=== PATIENT | male | born 1970 | race Two or more races ===

== ENCOUNTER 2024-08-21 09:38 | Outpatient (AMB) | payer MEDICAID, SELFPAY ==
[2024-08-21 09:50] VITALS: BP 147/79; PULSE 76; RESP 18; TEMP 36.6; O2SAT 94; BMI 48.4
--- NOTE | 2024-08-21 09:50 | RHCORTHONT_ITS ---
Vital signs 08/21/24 09:50 Height 1.75 m Height Method Stated Weight 148.863 kg Weight Measurement Method Standing Scale BMI 48.4 BP 147/79 H Blood Pressure Source Automatic Cuff Blood Pressure Location Right Upper Arm Position Sitting Respiration 18 Pulse 76 Pulse Source Monitor Temp 97.9 F Temp Source Temporal Artery Scan Pulse Oximetry (%) 94 L Oxygen Delivery Method Room Air Med/Allergies Allergies & Medications Allergies Fish Containing Products Allergy (Severe, Verified 08/21/24 09:51) Swelling of Lip/Tongue/Throat scallops Allergy (Severe, Verified 08/21/24 09:51) Swelling of Lip/Tongue/Throat shrimp Allergy (Severe, Verified 08/21/24 09:51) Swelling of Lip/Tongue/Throat Penicillins Allergy (Mild, Verified 08/21/24 09:51) Rash ibuprofen [From Motrin] Allergy (Verified 08/21/24 09:51) Medication Reconciliation hydrocortisone-pramoxine 1 %-1 % rectal cream 1 applic [place] TID-QID PRN hemorrhoids #30 grams 12/25/23 [Rx] rosuvastatin 20 mg tablet 20 mg PO QDAY 08/21/24 [History Confirmed 08/21/24] semaglutide 1 mg/dose (4 mg/3 mL) subcutaneous pen injector (Ozempic) 1 mg subcut QWEEK 08/21/24 [History Confirmed 08/21/24] Exam Exam Patient is in no acute distress and is cooperative with the examination today. Breathing is nonlabored. In no respiratory distress. Bilateral extremities were evaluated and demonstrates sensation intact to light touch. Palpable pedal pulses are present. No significant edema is present. Bilateral hips were examined. The patient has no pain with log roll of the hips. Internal rotation to 30 degrees and external rotation to 30 degrees is painless. Negative FADIR. The left knee was examined. The left knee is in [varus] alignment. Range of motion from [0-115] degrees. Knee is stable to varus and valgus as well as AP translation with <5mm. Patient has a [negative] McMurrays. There is [no] pain with patellofemoral compression and [no] crepitus noted. The knee is [tender] to palpation [medially]. The right knee was also examined. The right knee is in [varus] alignment. Range of motion from [0-120] degrees. Knee is stable to varus and valgus as well as AP translation with <5mm. Patient has a [negative] McMurrays. There is [no] pain with patellofemoral compression and [no] crepitus noted. The knee is [tender] to palpation [medially]. X-rays of the right knee demonstrate complete joint space obliteration medially. There are osteophytes present. I looked at the x-rays on her phone. Assessment and Plan Problem List (1) Degenerative arthritis of knee, bilateral: Status: Acute Plan: Patient is a pleasant 54-year-old male with bilateral knee pain and bilateral knee arthritis. We discussed Conservative treatment including injections and anti-inflammatories. We also discussed weight loss in great detail. We discussed his goal weight is probably around 270. We recommend that he see us in 6 months and we will check his weight progress. Office Procedures GNS Level of Care Nursing/Assessment Patient Status: Initial/New Patient Nursing Assessment/Reassesment: Medication Reconciliation, Update PMH in EMR and Vital Signs Coordination of Care: Complex Care and Chronic Disease 1-5, Education Complex Pt/Fam, Results/Orders obtained and Staff clarify orders New Patient Charge New Patient Point Assignment: 1089 New Patient Point Charge: SENIOR DIRECTOR OF STRATEGY Level 3 (4216-0116) MA Intake Visit Data Collection New Patient or Established: New Patient (never been to [facility]) Reason for Visit:: RT KNEE PAIN Seen by Clinical Staff ONLY (RN/MA): No Multimedia Programmer Required: No PCP or OBGYN visit in last 3 months: Yes Hx Now: No Do You Feel Safe at Home: Yes Questionairres Past Medical History Past Medical History Have you ever been diagnosed with any of the following: Neurological Problems Seizures: No Cardiology Problems Hypercholesterolemia: Yes (not currently taking medication) Congestive Heart Failure: No Respiratory Problems Chronic Obstructive Pulmonary Disease (COPD): No Pneumonia: Yes Sleep Apnea: Yes (no machine) Smoking: Yes Smoking Cessation Counseling: Yes Smoking Exposure: Yes Tobacco Use: Yes Stomache/Intestinal Problems Gastrointestinal Bleed: Yes Ulcer: Yes (2003) Obesity: Yes Genital/Urinary Problems Renal Disease: No Musculoskeletal Problems Fractures: Yes (right hand, no surgery) Endocrine Problems Diabetes Mellitus Type 1: No Diabetes Mellitus Type 2: No Blood Problems Anemia: Yes Other Problems Hospitalization: Yes (c.diff, salmonella (2018)) Shingles: Yes (4 years ago) Falls: No Blood Transfusions: Yes (2003) Blood Transfusion Reaction: No Anesthesia Reactions: No (this is patient's first surgery, pt has had iv sedation) MRSA: No Chicken Pox: Yes Clostridium Difficile: Yes Cancer: No Surgical History Hysterectomy: No Subjective Visit Visit for: new patient and knee Immunization / Flu Flu Vaccine in the Last 12 Months: No Flu Vaccine Exclusion Criteria: Refused by Patient History of Present Illness Chief complaint: RT KNEE PAIN Date of injury / onset of symptoms: 26 YEARS Patient is a 54-year-old male with right knee pain has been ongoing for 26 years. He has had a prior arthroscopic meniscectomy in 2019. He got over 12 injections and the injections only lasted 3 days. He is also tried anti- inflammatory medication. He is currently smoking and is obese. He is on Ozempic and is starting to lose weight Personal History Occupation: CAREGIVER BMI Counceling provided: Yes Pain Pain level (0-10): 6 Pain duration: CONSTANT Pain location: inside (medial), outside (lateral), anterior and posterior Pain quality: aching and burning Pain timing: increases with activity and stairs Associated signs & symptoms: numbness and weakness Ambulatory data Ambulatory device: none Walking distance (minutes): 15 Treatments Number of previous injections: 12 Improvement with previous injections: No Improvement with NSAIDS: no Review of Systems Review of Systems: All systems negative unless otherwise noted in HPI.
== END 2024-08-21 10:12 | disposition home or self-care (01) ==
LOC: HODSRG 09:38
PROVIDERS: PCP Family Medicine; Referring Provider Family Medicine; Supervising Provider Orthopaedic Surgery Adult Reconstructive Orthopaedic Surgery; Visit Provider Orthopaedic Surgery Adult Reconstructive Orthopaedic Surgery
DX: M17.0 Bilateral primary osteoarthritis of knee (principal); M25.562 Pain in left knee; M25.561 Pain in right knee; E78.00 Pure hypercholesterolemia, unspecified
CPT/HCPCS: 99203; G0463

== ENCOUNTER → 2025-01-20 | Outpatient (CLI) | payer MEDICAID, SELFPAY ==
--- NOTE | 2025-01-20 09:42 | XR_ITS ---
Examination: Knee, left , 3 views Technique: Knee AP, lateral, oblique 3 views Date and time of exam: January 20, 2025 0946 hours INDICATIONS: Left knee pain beginning 2 months ago. FINDINGS: Moderate osteopenia. Mild tricompartment osteoarthritis. Small knee effusion IMPRESSION: Mild tricompartment osteoarthritis
== END | disposition home or self-care (01) ==
LOC: CDIM 09:28
PROVIDERS: PCP Family Medicine; Referring Provider Family Medicine; Visit Provider Family Medicine
DX: M17.12 Unilateral primary osteoarthritis, left knee (principal)
CPT/HCPCS: 73562

== ENCOUNTER 2025-02-18 09:42 | Outpatient (AMB) | payer MEDICAID, SELFPAY ==
[2025-02-18 10:25] VITALS: BP 131/83; PULSE 72; RESP 19; TEMP 36.5; O2SAT 94; BMI 48.4
--- NOTE | 2025-02-18 10:25 | PD.ORTHCLVIS ---
Vital signs 02/18/25 10:25 Height 1.75 m Height Method Stated Weight 148.552 kg Weight Measurement Method Standing Scale BMI 48.4 BP 131/83 H Blood Pressure Source Automatic Cuff Blood Pressure Location Left Upper Arm Position Sitting Respiration 19 Pulse 72 Pulse Source Monitor Temp 97.7 F Temp Source Temporal Artery Scan Pulse Oximetry (%) 94 L Oxygen Delivery Method Room Air Med/Allergies Allergies & Medications Allergies Fish Containing Products Allergy (Severe, Verified 02/18/25 10:27) Swelling of Lip/Tongue/Throat scallops Allergy (Severe, Verified 02/18/25 10:27) Swelling of Lip/Tongue/Throat shrimp Allergy (Severe, Verified 02/18/25 10:27) Swelling of Lip/Tongue/Throat Penicillins Allergy (Mild, Verified 02/18/25 10:27) Rash ibuprofen (From Motrin) Allergy (Verified 02/18/25 10:27) Medication Reconciliation hydrocortisone-pramoxine 1 %-1 % rectal cream 1 applic [place] TID-QID PRN hemorrhoids #30 grams 12/25/23 [Rx Confirmed 02/18/25] rosuvastatin 20 mg tablet 20 mg PO QDAY 08/21/24 [History Confirmed 02/18/25] semaglutide 1 mg/dose (4 mg/3 mL) subcutaneous pen injector (Ozempic) 1 mg subcut QWEEK 08/21/24 [History Confirmed 02/18/25] Exam Exam Patient is in no acute distress and is cooperative with the examination today. Breathing is nonlabored. In no respiratory distress. Bilateral extremities were evaluated and demonstrates sensation intact to light touch. Palpable pedal pulses are present. No significant edema is present. Bilateral hips were examined. The patient has no pain with log roll of the hips. Internal rotation to 30 degrees and external rotation to 30 degrees is painless. Negative FADIR. The left knee was examined. The left knee is in [varus] alignment. Range of motion from [0-115] degrees. Knee is stable to varus and valgus as well as AP translation with <5mm. Patient has a [negative] McMurrays. There is [no] pain with patellofemoral compression and [no] crepitus noted. The knee is [tender] to palpation [medially]. The right knee was also examined. The right knee is in [varus] alignment. Range of motion from [0-120] degrees. Knee is stable to varus and valgus as well as AP translation with <5mm. Patient has a [negative] McMurrays. There is [no] pain with patellofemoral compression and [no] crepitus noted. The knee is [tender] to palpation [medially]. Bilateral knee x-rays demonstrate mild to moderate arthritis. These are nonweightbearing films Assessment and Plan Problem List (1) Degenerative arthritis of knee, bilateral: Status: Acute Plan: Patient is a pleasant 54-year-old male with bilateral knee pain and bilateral knee arthritis. We discussed Conservative treatment including injections and anti-inflammatories. We also discussed weight loss in great detail. He has lost some weight. He is lost about 12 pounds. I will need x-rays of the other knee as this is what is hurting him more right now. Office Procedures GNS Level of Care Nursing/Assessment Patient Status: Established Patient Nursing Assessment/Reassesment: Medication Reconciliation, Update PMH in EMR and Vital Signs Coordination of Care: Complex Care and Chronic Disease 1-5, Education Complex Pt/Fam, Consent,records obtained, informed consent, Results/Orders obtained and Staff clarify orders Established Patient Charge Established Patient Point Assignment: 95 Established Patient Point Charge: EP Level 3 (80-115) MA Intake Visit Data Collection New Patient or Established: Established Patient (seen at [facility] within 3 years) Reason for Visit:: 6MTH BL PAIN Seen by Clinical Staff ONLY (RN/MA): No PCP or OBGYN visit in last 3 months: Yes Hx Now: No Do You Feel Safe at Home: Yes Authorities Contacted: N/A Questionairres Past Medical History Past Medical History Have you ever been diagnosed with any of the following: Neurological Problems Seizures: No Cardiology Problems Hypercholesterolemia: Yes (not currently taking medication) Congestive Heart Failure: No Respiratory Problems Chronic Obstructive Pulmonary Disease (COPD): No Pneumonia: Yes Sleep Apnea: Yes (no machine) Smoking: Yes Smoking Cessation Counseling: Yes Smoking Exposure: Yes Tobacco Use: Yes Stomache/Intestinal Problems Gastrointestinal Bleed: Yes Ulcer: Yes (2003) Obesity: Yes Genital/Urinary Problems Renal Disease: No Musculoskeletal Problems Fractures: Yes (right hand, no surgery) Endocrine Problems Diabetes Mellitus Type 1: No Diabetes Mellitus Type 2: No Blood Problems Anemia: Yes Other Problems Hospitalization: Yes (c.diff, salmonella (2018)) Shingles: Yes (4 years ago) Falls: No Blood Transfusions: Yes (2003) Blood Transfusion Reaction: No Anesthesia Reactions: No (this is patient's first surgery, pt has had iv sedation) MRSA: No Chicken Pox: Yes Clostridium Difficile: Yes Cancer: No Subjective Visit Visit for: new patient, follow up visit and knee Immunization / Flu Flu Vaccine in the Last 12 Months: No Flu Vaccine Exclusion Criteria: Refused by Patient and No Exclusion Criteria History of Present Illness Chief complaint: RT KNEE PAIN Date of injury / onset of symptoms: 26 YEARS Patient is a 54-year-old male with right knee pain has been ongoing for 26 years. He has had a prior arthroscopic meniscectomy in 2019. He got over 12 injections and the injections only lasted 3 days. He has also tried anti-inflammatory medication. He is currently smoking and is obese. He is on Ozempic and is starting to lose weight He reports the left knee has been acting up recently. He has no x-rays for this knee Personal History Occupation: CAREGIVER BMI Counceling provided: Yes Pain Pain level (0-10): 4 Pain duration: CONSTANT Pain location: inside (medial), outside (lateral), anterior and posterior Pain quality: dull, aching and burning Pain timing: night, increases with activity and stairs Associated signs & symptoms: numbness and weakness Ambulatory data Ambulatory device: none Walking distance (minutes): 15 Treatments Number of previous injections: 12 Improvement with previous injections: No Improvement with PT: No Improvement with NSAIDS: no Review of Systems Review of Systems: All systems negative unless otherwise noted in HPI.
--- NOTE | 2025-02-18 10:27 | XR_ITS ---
Examination: Bilateral knees 2 views Right lateral knee left lateral knee 2 views Bilateral axial knees single view TECHNIQUE: Bilateral AP knees standing single view, bilateral PA knees standing single view flexion Standing right lateral knee left lateral knee 2 views Bilateral axial knees single view total 5 views Date and time: February 18, 2025 1052 hours INDICATIONS: Left knee pain beginning 2 months ago. FINDINGS: Advanced narrowing medial joint space right knee Significant osteoarthritis right patellofemoral joint Mild to moderate tricompartment osteoarthritis left knee most prominent patellofemoral joint No fractures No patellar dislocation IMPRESSION: Advanced narrowing medial joint space right knee Significant osteoarthritis right patellofemoral joint
== END 2025-02-18 10:35 | disposition home or self-care (01) ==
LOC: HODSRG 09:42
PROVIDERS: PCP Family Medicine; Referring Provider Family Medicine; Supervising Provider Orthopaedic Surgery Adult Reconstructive Orthopaedic Surgery; Visit Provider Orthopaedic Surgery Adult Reconstructive Orthopaedic Surgery
DX: M17.0 Bilateral primary osteoarthritis of knee (principal); M25.562 Pain in left knee; M25.561 Pain in right knee; M25.861 Other specified joint disorders, right knee
CPT/HCPCS: 73564; 99213; G0463

== ENCOUNTER 2025-03-18 10:28 | Outpatient (AMB) | payer MEDICAID, SELFPAY ==
[2025-03-18 10:42] VITALS: BP 133/87; PULSE 76; RESP 18; TEMP 36.6; O2SAT 97; BMI 48.1
--- NOTE | 2025-03-18 10:42 | PD.ORTHCLVIS ---
Vital signs 03/18/25 10:42 Height 1.75 m Height Method Stated Weight 147.418 kg Weight Measurement Method Standing Scale BMI 48.1 BP 133/87 H Blood Pressure Source Automatic Cuff Blood Pressure Location Left Upper Arm Position Sitting Respiration 18 Pulse 76 Pulse Source Monitor Temp 97.8 F Temp Source Temporal Artery Scan Pulse Oximetry (%) 97 Oxygen Delivery Method Room Air Med/Allergies Allergies & Medications Allergies Fish Containing Products Allergy (Severe, Verified 03/18/25 10:45) Swelling of Lip/Tongue/Throat scallops Allergy (Severe, Verified 03/18/25 10:45) Swelling of Lip/Tongue/Throat shrimp Allergy (Severe, Verified 03/18/25 10:45) Swelling of Lip/Tongue/Throat Penicillins Allergy (Mild, Verified 03/18/25 10:45) Rash ibuprofen (From Motrin) Allergy (Verified 03/18/25 10:45) Medication Reconciliation hydrocortisone-pramoxine 1 %-1 % rectal cream 1 applic [place] TID-QID PRN hemorrhoids #30 grams 12/25/23 [Rx Confirmed 03/18/25] rosuvastatin 20 mg tablet 20 mg PO QDAY 08/21/24 [History Confirmed 03/18/25] semaglutide 1 mg/dose (4 mg/3 mL) subcutaneous pen injector (Ozempic) 1 mg subcut QWEEK 08/21/24 [History Confirmed 03/18/25] Exam Exam Patient is in no acute distress and is cooperative with the examination today. Breathing is nonlabored. In no respiratory distress. Bilateral extremities were evaluated and demonstrates sensation intact to light touch. Palpable pedal pulses are present. No significant edema is present. Bilateral hips were examined. The patient has no pain with log roll of the hips. Internal rotation to 30 degrees and external rotation to 30 degrees is painless. Negative FADIR. The left knee was examined. The left knee is in [varus] alignment. Range of motion from [0-115] degrees. Knee is stable to varus and valgus as well as AP translation with <5mm. Patient has a [negative] McMurrays. There is [no] pain with patellofemoral compression and [no] crepitus noted. The knee is [tender] to palpation [medially]. The right knee was also examined. The right knee is in [varus] alignment. Range of motion from [0-120] degrees. Knee is stable to varus and valgus as well as AP translation with <5mm. Patient has a [negative] McMurrays. There is [no] pain with patellofemoral compression and [no] crepitus noted. The knee is [tender] to palpation [medially]. Bilateral knee x-rays demonstrate mild to moderate arthritis On the left and severe arthritis on the right knee Assessment and Plan Problem List (1) Degenerative arthritis of knee, bilateral: Status: Acute Plan: Patient is a pleasant 54-year-old male with bilateral knee pain and bilateral knee arthritis. We discussed Conservative treatment including injections and anti-inflammatories. We also discussed weight loss in great detail. He would like to try injection on the left knee today. Recommend knee cortisone injection as patient would like to proceed with conservative treatment at this time. The risks and benefits of the procedure were reviewed with the patient and patient gave verbal consent to continue with the procedure. Procedure: performed by Dr. Varghese Using sterile technique the left knee was thoroughly prepped with alcohol, and approximately 1 cc of Kenalog 40 mg/mL and 4 cc of 1% lidocaine was injected without resistance into the medial tibial femoral joint space. The patient tolerated the procedure. Office Procedures GNS Level of Care Nursing/Assessment Patient Status: Established Patient Nursing Assessment/Reassesment: Medication Reconciliation, Update PMH in EMR and Vital Signs Coordination of Care: Complex Care and Chronic Disease 1-5, Education Complex Pt/Fam, Consent,records obtained, informed consent, Results/Orders obtained and Staff clarify orders Established Patient Charge Established Patient Point Assignment: 95 Established Patient Point Charge: EP Level 3 (80-115) Surgical Proc/IM SQ injection Major Surgical Procedure: Yes (KNEE INJECTION) Medication Given Medication Given Medication Given: Yes Documented Dose Given: 4 Route: Infiitration Medication Given Medication Given Medication Given: Yes Documented Dose Given: 1 Route: Infiitration Office Meds Xylocaine 10 mg/mL (1 %) injection solution Performing Provider: Yunier Varghese MD Performing Location: [facility] Administered by: Yunier Varghese MD on 03/18/25 10:53 Dose Route Admin Location Dispensed Lot Number Expiration Date [facility] [place]rr[place] Installer 20 mL Infiltration 20 mL [id number] 06/01/28 14710-612-03 [employer]ESENI[employer] KABI triamcinolone acetonide 40 mg/mL suspension for injection Performing Provider: Yunier Varghese MD Performing Location: [facility] Administered by: Yunier Varghese MD on 03/18/25 10:53 Dose Route Admin Location Dispensed Lot Number Expiration Date [facility] [place] [employer]rr[employer] [place] Installer 40 mg intra-articular KNEE 1 mL [id number] 10/01/26 14985-044-68 TREY BABCOCK MA Intake Visit Data Collection Reason for Visit:: 6MTH BL PAIN Seen by Clinical Staff ONLY (RN/MA): No PCP or OBGYN visit in last 3 months: Yes Hx Now: No Do You Feel Safe at Home: Yes Authorities Contacted: N/A Questionairres Past Medical History Past Medical History Have you ever been diagnosed with any of the following: Neurological Problems Seizures: No Cardiology Problems Hypercholesterolemia: Yes (not currently taking medication) Congestive Heart Failure: No Respiratory Problems Chronic Obstructive Pulmonary Disease (COPD): No Pneumonia: Yes Sleep Apnea: Yes (no machine) Smoking: Yes Smoking Cessation Counseling: Yes Smoking Exposure: Yes Tobacco Use: Yes Stomache/Intestinal Problems Gastrointestinal Bleed: Yes Ulcer: Yes (2003) Obesity: Yes Genital/Urinary Problems Renal Disease: No Musculoskeletal Problems Fractures: Yes (right hand, no surgery) Endocrine Problems Diabetes Mellitus Type 1: No Diabetes Mellitus Type 2: No Blood Problems Anemia: Yes Other Problems Hospitalization: Yes (c.diff, salmonella (2018)) Shingles: Yes (4 years ago) Falls: No Blood Transfusions: Yes (2003) Blood Transfusion Reaction: No Anesthesia Reactions: No (this is patient's first surgery, pt has had iv sedation) MRSA: No Chicken Pox: Yes Clostridium Difficile: Yes Cancer: No Subjective Visit Visit for: follow up visit, knee and x-rays Immunization / Flu Flu Vaccine in the Last 12 Months: No Flu Vaccine Exclusion Criteria: Refused by Patient and No Exclusion Criteria History of Present Illness Chief complaint: RT KNEE PAIN Date of injury / onset of symptoms: 26 YEARS Patient is a 54-year-old male with right knee pain has been ongoing for 26 years. He has had a prior arthroscopic meniscectomy in 2019. He got over 12 injections and the injections only lasted 3 days. He has also tried anti-inflammatory medication. He is currently smoking and is obese. He is on Ozempic and is starting to lose weight He reports the left knee has been acting up recently. Personal History Occupation: CAREGIVER BMI Counceling provided: Yes Pain Pain level (0-10): 4 Pain duration: CONSTANT Pain location: inside (medial), outside (lateral), anterior and posterior Pain quality: dull, aching and burning Pain timing: night, increases with activity and stairs Associated signs & symptoms: numbness and weakness Ambulatory data Ambulatory device: none Walking distance (minutes): 15 Treatments Number of previous injections: 12 Improvement with previous injections: No Improvement with PT: No Improvement with NSAIDS: no Review of Systems Review of Systems: All systems negative unless otherwise noted in HPI.
== END 2025-03-18 10:56 | disposition home or self-care (01) ==
LOC: HODSRG 10:28
PROVIDERS: PCP Family Medicine; Referring Provider Family Medicine; Supervising Provider Orthopaedic Surgery Adult Reconstructive Orthopaedic Surgery; Visit Provider Orthopaedic Surgery Adult Reconstructive Orthopaedic Surgery
DX: M17.0 Bilateral primary osteoarthritis of knee (principal); M25.562 Pain in left knee; M25.561 Pain in right knee; E78.00 Pure hypercholesterolemia, unspecified; E66.9 Obesity, unspecified; Z68.42 Body mass index [BMI] 45.0-49.9, adult
CPT/HCPCS: 20610; 99213; J3301; J3490; G0463

== ENCOUNTER 2025-07-23 10:53 | Outpatient (AMB) | payer MEDICAID, SELFPAY ==
--- NOTE | 2025-07-23 11:25 | XR_ITS ---
EXAMINATION: Bilateral AP knees single view Left knee PA lateral axial 3 views TECHNIQUE: Bilateral AP knees standing single view Standing PA flexion left knee standing lateral left knee axial left knee 3 views total 4 views Date and time: July 23, 2025, 1145 hours INDICATIONS: Patient fell 2 weeks ago with injury to the knees, left knee pain FINDINGS: Advanced narrowing medial joint space right knee Moderate osteoarthritis lateral joint space right knee Mild to moderate left knee tricompartment osteoarthritis No fracture or patellar dislocation IMPRESSION: Advanced narrowing medial joint space right knee Moderate tricompartment osteoarthritis left knee No fractures
--- NOTE | 2025-07-23 11:29 | PD.ORTHCLVIS ---
Vital signs 07/23/25 11:31 Height 1.75 m Height Method Stated Weight 144.866 kg Weight Measurement Method Standing Scale BMI 47.2 BP 137/79 H Blood Pressure Source Automatic Cuff Blood Pressure Location Left Upper Arm Position Sitting Respiration 18 Pulse 94 Pulse Source Monitor Temp 97.8 F Temp Source Temporal Artery Scan Pulse Oximetry (%) 95 Oxygen Delivery Method Room Air Med/Allergies Allergies & Medications Allergies Fish Containing Products Allergy (Severe, Verified 07/23/25 11:31) Swelling of Lip/Tongue/Throat scallops Allergy (Severe, Verified 07/23/25 11:31) Swelling of Lip/Tongue/Throat shrimp Allergy (Severe, Verified 07/23/25 11:31) Swelling of Lip/Tongue/Throat Penicillins Allergy (Mild, Verified 07/23/25 11:31) Rash ibuprofen (From Motrin) Allergy (Verified 07/23/25 11:31) Medication Reconciliation hydrocortisone-pramoxine 1 %-1 % rectal cream 1 applic GA TID-QID PRN hemorrhoids #30 grams 12/25/23 [Rx Confirmed 07/23/25] rosuvastatin 20 mg tablet 20 mg PO QDAY 08/21/24 [History Confirmed 07/23/25] semaglutide 1 mg/dose (4 mg/3 mL) subcutaneous pen injector (Ozempic) 1 mg subcut QWEEK 08/21/24 [History Confirmed 07/23/25] Exam Exam Patient is in no acute distress and is cooperative with the examination today. Breathing is nonlabored. In no respiratory distress. Bilateral extremities were evaluated and demonstrates sensation intact to light touch. Palpable pedal pulses are present. No significant edema is present. Bilateral hips were examined. The patient has no pain with log roll of the hips. Internal rotation to 30 degrees and external rotation to 30 degrees is painless. Negative FADIR. The left knee was examined. The left knee is in [varus] alignment. Range of motion from [0-115] degrees. Knee is stable to varus and valgus as well as AP translation with <5mm. Patient has a [negative] Mc[place]rays. There is [no] pain with patellofemoral compression and [no] crepitus noted. The knee is [tender] to palpation [medially]. The right knee was also examined. The right knee is in [varus] alignment. Range of motion from [0-120] degrees. Knee is stable to varus and valgus as well as AP translation with <5mm. Patient has a [negative] McMurrays. There is [no] pain with patellofemoral compression and [no] crepitus noted. The knee is [tender] to palpation [medially]. Bilateral knee x-rays demonstrate mild to moderate arthritis On the left and severe arthritis on the right knee Assessment and Plan Problem List (1) Degenerative arthritis of knee, bilateral: Status: Acute Plan: Patient is a pleasant 54-year-old male with bilateral knee pain and bilateral knee arthritis. We discussed Conservative treatment including injections and anti-inflammatories. We also discussed weight loss in great detail. He would like to try injection on the left knee today. Recommend knee cortisone injection as patient would like to proceed with conservative treatment at this time. The risks and benefits of the procedure were reviewed with the patient and patient gave verbal consent to continue with the procedure. Procedure: performed by Dr. Varghese Using sterile technique the left knee was thoroughly prepped with alcohol, and approximately 1 cc of Depo-Medrol 80mg/mL and 4 cc of 0.2% ropivacaine was injected without resistance into the medial tibial femoral joint space. The patient tolerated the procedure. We will also get new left knee x-rays today Office Procedures GNS Level of Care Nursing/Assessment Patient Status: Established Patient Nursing Assessment/Reassesment: Medication Reconciliation, Update PMH in EMR and Vital Signs Coordination of Care: Complex Care and Chronic Disease 1-5, Education Complex Pt/Fam, Consent,records obtained, informed consent, Results/Orders obtained and Staff clarify orders Established Patient Charge Established Patient Point Assignment: 95 Established Patient Point Charge: EP Level 3 (80-115) Surgical Proc/IM SQ injection Minor Surgical Procedure: Yes (KNEE INJECTION) Medication Given Medication Given Medication Given: Yes Documented Dose Given: 1 Route: Infiitration Medication Given Medication Given Medication Given: Yes Documented Dose Given: 4 Route: Infiitration Office Meds methylprednisolone acetate 80 mg/mL suspension for injection Performing Provider: Yunier Varghese MD Performing Location: [facility] Administered by: Yunier Varghese MD on 07/23/25 12:11 Dose Route Admin Location Dispensed Lot Number Expiration Date Package [facility] Special Needs Libr[facility] 80 mg intra-articular 1 mL [id number] 03/31/27 [address]-4 [id number] [employer] ropivacaine (PF) 2 mg/mL (0.2 %) injection solution Performing Provider: Yunier Varghese MD Performing Location: [facility] Administered by: Yunier Varghese MD on 07/23/25 12:11 Dose Route Admin Location Dispensed Lot Number Expiration Date Package [facility] [place] Special Needs Librarian 20 mL Infiltration 20 mL [id number] 10/01/27 58807-947-23 [id number] [facility] Intake Visit Data Collection New Patient or Established: Established Patient (seen at [facility] within 3 years) Reason for Visit:: 3MTH KNEE INJ Seen by Clinical Staff ONLY (RN/MA): No PCP or OBGYN visit in last 3 months: Yes Hx Now: No Do You Feel Safe at Home: Yes Authorities Contacted: N/A Questionairres Past Medical History Past Medical History Have you ever been diagnosed with any of the following: Neurological Problems Seizures: No Cardiology Problems Hypercholesterolemia: Yes (not currently taking medication) Congestive Heart Failure: No Respiratory Problems Chronic Obstructive Pulmonary Disease (COPD): No Pneumonia: Yes Sleep Apnea: Yes (no machine) Smoking: Yes Smoking Cessation Counseling: Yes Smoking Exposure: Yes Tobacco Use: Yes Stomache/Intestinal Problems Gastrointestinal Bleed: Yes Ulcer: Yes (2003) Obesity: Yes Genital/Urinary Problems Renal Disease: No Musculoskeletal Problems Fractures: Yes (right hand, no surgery) Endocrine Problems Diabetes Mellitus Type 1: No Diabetes Mellitus Type 2: No Blood Problems Anemia: Yes Other Problems Hospitalization: Yes (c.diff, salmonella (2018)) Shingles: Yes (4 years ago) Falls: No Blood Transfusions: Yes (2003) Blood Transfusion Reaction: No Anesthesia Reactions: No (this is patient's first surgery, pt has had iv sedation) MRSA: No Chicken Pox: Yes Clostridium Difficile: Yes Cancer: No Subjective Visit Visit for: follow up visit, knee and x-rays Immunization / Flu Flu Vaccine in the Last 12 Months: No Flu Vaccine Exclusion Criteria: Refused by Patient and No Exclusion Criteria History of Present Illness Chief complaint: RT KNEE PAIN Date of injury / onset of symptoms: 26 YEARS Patient is a 54-year-old male with right knee pain has been ongoing for 26 years. He has had a prior arthroscopic meniscectomy in 2019. He got over 12 injections and the injections only lasted 3 days. He has also tried anti-inflammatory medication. He is currently smoking and is obese. He is on Ozempic and is starting to lose weight He reports the left knee has been acting up recently. Personal History Occupation: CAREGIVER BMI Counceling provided: Yes Pain Pain level (0-10): 4 Pain duration: CONSTANT Pain location: inside (medial), outside (lateral), anterior and posterior Pain quality: dull, aching and burning Pain timing: night, increases with activity and stairs Associated signs & symptoms: numbness and weakness Ambulatory data Ambulatory device: none Walking distance (minutes): 15 Treatments Number of previous injections: 12 Improvement with previous injections: No Improvement with PT: No Improvement with NSAIDS: no Review of Systems Review of Systems: All systems negative unless otherwise noted in HPI.
[2025-07-23 11:31] VITALS: BP 137/79; PULSE 94; RESP 18; TEMP 36.6; O2SAT 95; BMI 47.2
== END 2025-07-23 11:33 | disposition home or self-care (01) ==
LOC: HODSRG 10:53
PROVIDERS: PCP Family Medicine; Referring Provider Family Medicine; Supervising Provider Orthopaedic Surgery Adult Reconstructive Orthopaedic Surgery; Visit Provider Orthopaedic Surgery Adult Reconstructive Orthopaedic Surgery
DX: M17.0 Bilateral primary osteoarthritis of knee (principal); M25.562 Pain in left knee; M25.561 Pain in right knee; E66.9 Obesity, unspecified; Z68.42 Body mass index [BMI] 45.0-49.9, adult
CPT/HCPCS: 20610; 73564; 99213; J1010; J2795; G0463